=== PATIENT | female | born 1985 | race Caucasian/White ===

== ENCOUNTER 2017-06-27 07:46 | Emergency (ER) | payer OTHER ==
[~2017-06-27] VITALS: Ht 162.5 cm; Wt 93.0 kg
[~2017-06-27 07:46] MED LIST: ALEVE220 MG PO; AMOXICILLIN500 M2 PO; AMOXICILLIN500 MG PO; AMOXIL250 MG/5 M PO; CIPRO250 MG PO; CLEOCIN150 MG PO; CLINDAMYCIN150 MG PO; DIFLUCAN150 MG PO; HYDROCODONE BIT1 T11 PO; IBU-8800 MG PO; MOTRIN800 MG PO; NKHM; NORCO 325 MG-51 TAB PO; PERCOCET 325 MG1 TA2 PO; PRENATAL1 TA1 PO; REMERON15 MG PO; TOBREX OPHTH S2.5 ML OPH; ULTRAM50 MG PO; VICODIN 5/500 505 MG PO; ZOLOFT50 MG PO; Zofran4 MG PO
== END 2017-06-27 09:50 | disposition home or self-care (01) ==
LOC: ED 07:46
DX: S62.667A Nondisplaced fracture of distal phalanx of left little finger, initial encounter for closed fracture (principal); F17.200 Nicotine dependence, unspecified, uncomplicated; Z88.1 Allergy status to other antibiotic agents; Z88.2 Allergy status to sulfonamides; X58.XXXA Exposure to other specified factors, initial encounter; Y93.89 Activity, other specified; Y92.89 Other specified places as the place of occurrence of the external cause; Y99.8 Other external cause status

== ENCOUNTER 2018-10-09 10:35 | Emergency (ER) | payer OTHER ==
[~2018-10-09] VITALS: Ht 162.5 cm; Wt 88.5 kg
[2018-10-09] MEDS ORDERED: AMOXICILLIN500 M3 PO (11:53)
== END 2018-10-09 12:40 | disposition home or self-care (01) ==
LOC: ED 10:35
DX: J02.0 Streptococcal pharyngitis (principal); F17.200 Nicotine dependence, unspecified, uncomplicated; Z88.2 Allergy status to sulfonamides; Z90.49 Acquired absence of other specified parts of digestive tract

== ENCOUNTER → 2020-05-26 | Outpatient (CLI) | payer OTHER ==
[~2020-05-26] MED LIST changes: +AMOXICILLIN500 M3 PO
== END | disposition home or self-care (01) ==
LOC: COVID19 10:42
PROVIDERS: ATTEND Pediatrics
DX: Z20.828 Contact with and (suspected) exposure to other viral communicable diseases (principal)

== ENCOUNTER → 2025-03-13 | Outpatient (CLI) | payer OTHER ==
[2025-03-13 11:51] LABS: BASO # 0.0 10*3/uL (0.0-0.1); BASO % 0.4 % (0.0-1.0); EOS # 0.2 10*3/uL (0.0-0.4); EOS % 2.3 % (1.0-4.0); MEAN CELL VOLUME 76.3 fl (81.0-99.0); MEAN CORPUSCULAR HGB 23.9 pg (27.0-31.0); MEAN PLATELET VOLUME 9.1 fl (9.6-12.3); MONO # 0.6 10*3/uL (0.1-1.0); MONO % 6.6 % (3.0-9.0); NEUT # 7.0 10*3/uL (2.3-7.9); NEUT % 75.0 % (47.0-73.0); NUCLEATED RED BLOOD CELL 0.0 % (0.0-0.0); NUCLEATED RED BLOOD CELL 0.0 10*3/uL (0.0-0.0); PLATELET COUNT AUTOMATED 357 10*3/uL (130-400); RED CELL DISTRI WIDTH 15.4 % (0-14.5); RETICULOCYTE % 1.74 % (0.50-2.50)
[2025-03-13 12:01] LABS: BILIRUBIN Negative (Negative); BLOOD Negative (Negative); CLARITY Clear (Clear); COLOR Yellow (Yellow); KETONE Trace (Negative); LEUKO ESTERASE Negative (Negative); NITRITE Negative (Negative); PH 5.5 (4.5-8.0); SPECIFIC GRAVITY >= 1.030 (1.001-1.030); UROBILINOGEN 1.0 E.U./dl (0.0-1.0)
[2025-03-13 12:18] LABS: MUCOUS 2+; WBC 0-2 wbc/hpf (0-5)
[2025-03-13 12:35] LABS: BUN 26 mg/dl (9-23); GAMMA GLUTAMYL TRANSFERASE 14 U/L (0-38); LDL CHOLESTEROL 119 mg/dL (9-159); SGPT/ALT 16 U/L (5-49); T3 UPTAKE 18.4 % (22.4-36.7); THYROXINE (T4) TOTAL 5.8 ug/dl (4.5-10.9)
[2025-03-13 12:37] LABS: VITAMIN D, 25-HYDROXY 29.3 ng/mL (30-100)
[2025-03-14 15:07] LABS: ANTI-DSDNA ANTIBODIES <1 IU/mL (0-9)
== END | disposition home or self-care (01) ==
LOC: LAB 11:27
PROVIDERS: ATTEND Family Medicine
DX: M47.817 Spondylosis without myelopathy or radiculopathy, lumbosacral region (principal); M54.50 Low back pain, unspecified; E78.5 Hyperlipidemia, unspecified; E55.9 Vitamin D deficiency, unspecified; R53.83 Other fatigue; R79.89 Other specified abnormal findings of blood chemistry; Z90.49 Acquired absence of other specified parts of digestive tract